=== PATIENT | female | born 1945 | race Caucasian/White ===

== ENCOUNTER 2019-03-08 08:38 | Day surgery (SDC) | payer MEDICARE, OTHER ==
[~2019-03-08] VITALS: Ht 152.4 cm; Wt 74.3 kg
[2019-03-08] VITALS (10 sets, daily range): BP systolic 93–154; BP diastolic 49–75; PULSE 80–92; RESP 14–17; Ht 152.4 cm; Wt 74.3 kg
[~2019-03-08 08:38] MED LIST: AMLO5TAB4 PO; EXEM25TA PO; LETR2.5T PO; LEVO100T82 PO; LOSA100T15 PO; ROSU40TA35 PO
[2019-03-08] MEDS ORDERED: SOD CHLORIDE 0.9% 1,000 ML IV SCH (11:30)
[2019-03-08] MEDS ORDERED: CEFAZOLIN 2 GM/50 ML (PMX) 50 ML IVPB ONE (11:30)
[2019-03-08] MEDS ORDERED: BUPIVACAINE 0.5%/EPI (SDV) 30 ML INJ ONE (12:23)
[2019-03-08] MEDS ORDERED: FENTAnyl 50 MCG/ML VIAL ONE (12:24)
[2019-03-08] MEDS ORDERED: MIDAZOLAM 1 MG/ML 2 ML INJ ONE (12:24)
[2019-03-08] MEDS ORDERED: KETOROLAC 30 MG INJ IV PRN (13:30)
[2019-03-08] MEDS ORDERED: ALBUTEROL 0.083% (NEB) 2.5 MG/3 ML AMP HHN PRN (13:30)
[2019-03-08] MEDS ORDERED: LABETALOL HCL 20MG INJ IV PRN (13:30)
[2019-03-08] MEDS ORDERED: ONDANSETRON 4 MG INJ IV PRN (13:30)
[2019-03-08] MEDS ORDERED: FENTAnyl 50 MCG/ML VIAL IV PRN ×3 (13:30)
[2019-03-08] MEDS ORDERED: OXYCODONE/ACETAMINOPHEN (5/325) TAB PO PRN ×2 (13:30)
[2019-03-08] MEDS ORDERED: hydrALAzine 20 MG INJ IV PRN (13:30)
[2019-03-08] MEDS ORDERED: DIPHENHYDRAMINE 50 MG INJ IV PRN (13:30)
[2019-03-08] MEDS ORDERED: MEPERIDINE 25 MG INJ IV PRN (13:30)
[2019-03-08] MEDS ORDERED: EPHEDrine 25 MG/5 ML SYG IV PRN (13:30)
== END 2019-03-08 14:45 | disposition home or self-care (01) ==
LOC: SDS 08:38
PROVIDERS: ATTEND Surgery Surgical Oncology
DX: L81.8 Other specified disorders of pigmentation (principal)
CPT/HCPCS: 11402; 88304; J0690; J2250; J3010